=== PATIENT | female | born 1995 | race Caucasian/White ===

== ENCOUNTER 2017-05-15 10:41 | Emergency (ER) | payer OTHER ==
[2017-05-15] MEDS ORDERED: diPHENhydraMINE IV* 50 MG/ML 1 ml VIAL (BENADRYL) IM ONE (11:18)
[2017-05-15 14:12] VITALS: BP 117/63
--- NOTE | 2017-05-26 12:52 | ED ---
Georgi Reynoso Jason, scribed for Tanmay Rocha MD on 05/15/17 at 1125 . Complex/Multi-Sys Presentation - HPI Summary HPI Summary: This patient is a 22 year old F resenting to [facility] with a chief complaint of tongue and throat tingling since 0900 today. She states that she started a new antidepressant, Zoloft, this morning at 0900 and 1.5 hours later she developed tingling in the tongue and throat. She includes she has never taken this medication before. The patient rates the pain 0/10 in severity. Symptoms aggravated by nothing. Symptoms alleviated by nothing. Patient reports she is typically sensitive to medication. Patient denies itching, hoarseness, wheezing , SOB, and hx of allergic reactions. - History Of Current Complaint Chief Complaint: EDAllergicReaction Time Seen by Provider: 05/15/17 11:04 Hx Obtained From: Patient Onset/Duration: Sudden Onset, Still Present Timing: Constant Associated Signs And Symptoms: Positive: Other - Patient denies itching, hoarseness, wheezing, SOB - Allergies/Home Medications Allergies/Adverse Reactions: Allergies Allergy/AdvReac Type Severity Reaction Status Date / Time No Known Allergies Allergy Verified 05/15/17 10:51 PMH/Surg Hx/FS Hx/Imm Hx Previously Healthy: No Opthamlomology History: Denies: Hx Legally Blind EENT History: Denies: Hx Deafness Psychiatric History: Reports: Hx Depression Infectious Disease History: No Infectious Disease History: Denies: Traveled Outside the [place] in Last 30 Days - Family History Known Family History: Negative: Blood Disorder - Social History Alcohol Use: None Substance Use Type: Reports: None Smoking Status (MU): Unknown if Ever Smoked Review of Systems ENT: Negative - itching, hoarseness Positive: Other - "tongue and throat tingling" Respiratory: Negative - wheezing Negative: Shortness Of Breath All Other Systems Reviewed And Are Negative: Yes Physical Exam - Summary Physical Exam Summary: Constitutional: Well-developed, Well-nourished, Alert. (-) Distressed Skin: Warm, Dry, no hives, no angioedema HENT: Normocephalic; Atraumatic Eyes: Conjunctiva normal Neck: Musculoskeletal ROM normal neck. (-) JVD, (-) Stridor, (-) Tracheal deviation Cardio: Rhythm regular, rate normal, Heart sounds normal; Intact distal pulses; The pedal pulses are 2+ and symmetric. Radial pulses are 2+ and symmetric. (-) Murmur Pulmonary/Chest wall: Effort normal. (-) Respiratory distress, (-) Wheezes, (-) Rales. No stridor Abd: Soft, (-) Tenderness, (-) Distension, (-) Guarding, (-) Rebound Musculoskeletal: (-) Edema Lymph: (-) Cervical adenopathy Neuro: Alert, Oriented x3 Psych: Mood and affect Normal Triage Information Reviewed: Yes Vital Signs On Initial Exam: Initial Vitals Temp Pulse Resp BP Pulse Ox 99.6 F 94 16 147/75 99 05/15/17 10:51 05/15/17 10:51 05/15/17 10:51 05/15/17 10:51 05/15/17 10:51 Vital Signs Reviewed: Yes Diagnostics - Vital Signs Vital Signs Temp Pulse Resp BP Pulse Ox 05/15/17 11:00 83 135/70 98 05/15/17 10:58 93 98 05/15/17 10:57 133/79 05/15/17 10:51 99.6 F 94 16 147/75 99 - Laboratory Lab Statement: Any lab studies that have been ordered have been reviewed, and results considered in the medical decision making process. Re-Evaluation - Re-Evaluation First Eval Re-Evaluation Time: 11:55 Change: Unchanged Comment: Patient's tongue "still feels weird." The tongue is normal in size, there is no edema. She received Benadryl 10 minutes ago and we will continue to monitor her. Second Eval Re-Evaluation Time: 13:25 Change: Improved - all symptoms resolved. Pt will be discharged. Pt is agreeable with this plan. Comment: Advised to discontinue Escitalopram take another Benadryl at 4:00 pm and another dose at bedtime. pt is improved and will be discharged. pt is agreeable with this plan. Complex Multi-Symp Course/Dx Course Of Treatment: Physician suspects medication adverse effect rather than allergic reaction. Patient given IM Benadryl for possible anxiety component. - Diagnoses Provider Diagnoses: Medication adverse effect Discharge - Sign-Out/Discharge Documenting (check all that apply): Discharge - Discharge Plan Condition: Stable Disposition: HOME Patient Education Materials: General Allergic Reaction (ED) Referrals: Manohar Acosta MD [Other] (follow up in 2-3 days) Additional Instructions: Discontinue Escitalopram. Take another Benadryl at 4:00 pm and another dose at bedtime. RETURN TO THE EMERGENCY DEPARTMENT FOR CHANGING OR WORSENING SYMPTOMS - Billing Disposition and Condition Condition: STABLE Disposition: HOME The documentation as recorded by the Georgi mcdonald Jason accurately reflects the service I personally performed and the decisions made by me, Tanmay Rocha MD.
== END 2017-05-15 14:11 | disposition home or self-care (01) ==
LOC: ED 10:41
DX: T43.225A Adverse effect of selective serotonin reuptake inhibitors, initial encounter (principal); Y92.9 Unspecified place or not applicable
CPT/HCPCS: 96372; 99282; J1200